=== PATIENT | female | born 1965 | race Caucasian/White ===

== ENCOUNTER 2016-06-22 22:08 | Emergency (ER) | payer MEDICARE, MEDICAID ==
[~2016-06-22] VITALS: Ht 162.6 cm; Wt 85.0 kg
[~2016-06-22 22:08] MED LIST: GABA300 PO; LEVO50TA4 PO; MOTI25CH PO
[2016-06-22 22:28] VITALS: BP 133/84; PULSE 111; RESP 22; TEMP 99.3; O2SAT 98
[2016-06-22] MEDS ORDERED: MECL-62 PO (22:36)
[2016-06-22] MEDS ORDERED: LEVO50TA4 PO (22:36)
[2016-06-22] MEDS ORDERED: AZIT250T3 PO (22:36)
--- NOTE | 2016-06-22 22:52 | PD ---
HPI Chief Complaint: Respiratory Symptoms Time Seen by Provider: 22:48 Travel History International Travel<30 days: No Contact w/Intl Traveler<30days: No Traveled to known affect area: No History of Present Illness HPI 50-year-old female with history of smoking, presents to the ER today with 2 weeks history of coughing, coughing up phlegm, shortness of breath, and had gone to [place] last week and had been seen by a physician there, had been given Zithromax which she states she is completing today but states that her reading has not improved. She has tried to use inhalers from a friend and only received mild improvements in breathing. She states she has been having subjective fevers. She denies any vomiting or any other symptoms. Modifying Factors: None Associated Signs & Symptoms: 2 weeks of coughing and shortness of breath Risk Factors: Smoking, finished Zithromax today PFSH Past Medical History Medical History: Denies Significant Hx ?: Not Past Surgical History Neurologic Surgery: Yes Social History Alcohol Use: No Tobacco Use: Yes (1/2 PPD) Substance Use: No Allergies-Medications (Allergen,Severity, Reaction): Coded Allergies: No Known Allergies (Verified , 06/22/16) Reported Meds & Prescriptions Reported Meds & Active Scripts Active Reported Azithromycin 250 Mg Tab 250 Mg PO DIRECTED Take 2 tabs (500 mg) on day 1 then 1 tab daily x 4 days. Meclizine (Meclizine HCl) 25 Mg Tab 25 Mg PO BID PRN Levothyroxine (Levothyroxine Sodium) 50 Mcg Tab 50 Mcg PO DAILY Review of Systems Except as stated in HPI: all other systems reviewed are Neg Physical Exam Narrative GENERAL: Well-developed middle age white female patient currently not in acute distress at rest. Awake and oriented 3. SKIN: Focused skin assessment warm/dry. HEAD: Atraumatic. Normocephalic. EYES: Pupils equal and round. No scleral icterus. No injection or drainage. ENT: No nasal bleeding or discharge. Mucous membranes pink and moist. NECK: Trachea midline. No JVD. CARDIOVASCULAR: Regular rate and rhythm. No murmur appreciated. RESPIRATORY: No accessory muscle use. Bilateral wheezing throughout. Breath sounds equal bilaterally. GASTROINTESTINAL: Abdomen soft, non-tender, nondistended. Hepatic and splenic margins not palpable. MUSCULOSKELETAL: No obvious deformities. No clubbing. No cyanosis. No edema. NEUROLOGICAL: Awake and alert. No obvious cranial nerve deficits. Motor grossly within normal limits. Normal speech. PSYCHIATRIC: Appropriate mood and affect; insight and judgment normal. Data Data Last Documented VS Vital Signs Date Time Temp Pulse Resp B/P Pulse Ox O2 Delivery O2 Flow Rate FiO2 06/22/16 22:28 99.3 111 22 133/84 98 Orders Complete Blood Count With Diff (06/22/16 22:48) Comprehensive Metabolic Panel (06/22/16 22:48) B-Type Natriuretic Peptide (06/22/16 22:48) Influenzae A/B Antigen (06/22/16 22:48) Iv Access Insert/Monitor (06/22/16 22:48) Ecg Monitoring (06/22/16 22:48) Oximetry (06/22/16 22:48) Oxygen Administration (06/22/16 22:48) Chest, Single Ap (06/22/16 22:48) Sodium Chloride 0.9% Flush (Ns Flush) (06/22/16 23:00) Methylprednisolone So Succ Inj (Solumedr (06/22/16 23:00) Albuterol-Ipratropium Neb (Duoneb Neb) (06/22/16 23:00) Albuterol Neb (Albuterol Neb) (06/22/16 23:45) Labs Laboratory Tests Test 06/22/16 23:00 White Blood Count 12.9 TH/MM3 Red Blood Count 4.37 MIL/MM3 Hemoglobin 12.8 GM/DL Hematocrit 38.0 % Mean Corpuscular Volume 86.9 FL Mean Corpuscular Hemoglobin 29.3 PG Mean Corpuscular Hemoglobin 33.7 % Concent Red Cell Distribution Width 12.5 % Platelet Count 240 TH/MM3 Mean Platelet Volume 7.8 FL Neutrophils (%) (Auto) 61.3 % Lymphocytes (%) (Auto) 27.4 % Monocytes (%) (Auto) 7.4 % Eosinophils (%) (Auto) 3.4 % Basophils (%) (Auto) 0.5 % Neutrophils # (Auto) 7.9 TH/MM3 Lymphocytes # (Auto) 3.5 TH/MM3 Monocytes # (Auto) 1.0 TH/MM3 Eosinophils # (Auto) 0.4 TH/MM3 Basophils # (Auto) 0.1 TH/MM3 CBC Comment DIFF FINAL Differential Comment Sodium Level 140 MEQ/L Potassium Level 3.2 MEQ/L Chloride Level 108 MEQ/L Carbon Dioxide Level 23.7 MEQ/L Anion Gap 8 MEQ/L Blood Urea Nitrogen 11 MG/DL Creatinine 0.56 MG/DL Estimat Glomerular Filtration 115 ML/MIN Rate Random Glucose 123 MG/DL Calcium Level 8.6 MG/DL Total Bilirubin 0.1 MG/DL Aspartate Amino Transf 13 U/L (AST/SGOT) Alanine Aminotransferase 21 U/L (ALT/SGPT) Alkaline Phosphatase 69 U/L B-Type Natriuretic Peptide 9 PG/ML Total Protein 7.1 GM/DL Albumin 3.4 GM/DL MDM Medical Decision Making Medical Screen Exam Complete: Yes Emergency Medical Condition: Yes Medical Record Reviewed: Yes Interpretation(s) Laboratory Tests Test 06/22/16 23:00 White Blood Count 12.9 TH/MM3 (4.0-11.0) Neutrophils # (Auto) 7.9 TH/MM3 (1.8-7.7) Monocytes # (Auto) 1.0 TH/MM3 (0-0.9) Potassium Level 3.2 MEQ/L (3.5-5.1) Chloride Level 108 MEQ/L (98-107) Random Glucose 123 MG/DL (74-106) Total Bilirubin 0.1 MG/DL (0.2-1.0) Aspartate Amino Transf 13 U/L (15-37) (AST/SGOT) Last 24 hours Impressions Chest X-Ray 06/22/16 8882 Signed Impressions: Service Date/Time: Wednesday, June 22, 2016 22:46 - CONCLUSION: 1. No acute cardiopulmonary disease. Daniel Naylor MD Differential Diagnosis Coughing, shortness of breathpneumonia versus bronchitis versus COPD Narrative Course Chest x-ray did not show any signs of acute pneumonia. Patient was given Solu- Medrol and nebulizers in the ER. After 4 nebulizers in the ER, she is feeling improved and my plan would be to release the patient with follow-up to primary care physician. Return for any worsening in symptoms as needed. I have discussed smoking cessation with the patient. She states understanding. Diagnosis Primary Impression: Bronchitis Med/Other Pt SpecificInfo: Prescription(s) given Scripts Albuterol 6.7 GM Inh (Proventil Hfa 6.7 GM Inh)90 Mcg/Act Aer2 Puff INH Q4-6H PRN (SHORTNESS OF BREATH) #1 INHALER Ref 0 Prov:Madelyn Lomeli MD 06/23/16 Prednisone 50 Mg Tab50 Mg PO DAILY #5 TAB Ref 0 Prov:Madelyn Lomeli MD 06/23/16 Disposition: 01 DISCHARGE HOME Condition: Stable Madelyn Lomeli MD Jun 22, 2016 22:52
[2016-06-22] MEDS ORDERED: SODIUM CHLORIDE 0.9% FLUSH 10 ML FLUSH IVF PRN (23:00)
[2016-06-22] MEDS ORDERED: methylPREDNISolone SOD SUCC 125 MG/2 ML VIAL IVP ONE (23:00)
--- NOTE | 2016-06-22 23:04 | RADRPT ---
EXAM DATE/TIME: 06/22/2016 22:46 [facility] COMPARISON: No previous studies available for comparison. INDICATIONS : Cold symptoms. MEDICAL HISTORY : None. SURGICAL HISTORY : None. ENCOUNTER: Initial ACUITY: 1 day PAIN SCORE: 0/10 LOCATION: Bilateral chest FINDINGS: A single view of the chest demonstrates the lungs to be symmetrically aerated without evidence of mas s, infiltrate or effusion. The cardiomediastinal contours are unremarkable. Osseous structures are intact. CONCLUSION: 1. No acute cardiopulmonary disease. Daniel Naylor MD on June 22, 2016 at 23:02 Board Certified Radiologist. This report was verified electronically.
[2016-06-22] MEDS: RESP: ALBUTEROL 2.5 MG/IPRATROPIUM 0.5 MG NEB (SCH) INH ×2 (23:08→23:09)
[2016-06-22 23:16] LABS: AUTOMATED NEUTROPHIL # 7.9 TH/MM3 (1.8-7.7); BASOPHIL # 0.1 TH/MM3 (0-0.2); BASOPHIL % 0.5 % (0.0-2.0); EOSINOPHIL # 0.4 TH/MM3 (0-0.4); EOSINOPHIL % 3.4 % (0.0-4.0); HEMO FLAGS DIFF FINAL; LYMPH % 27.4 % (9.0-44.0); LYMPHOCYTE # 3.5 TH/MM3 (1.0-4.8); MEAN CELL VOLUME 86.9 FL (80.0-100.0); MEAN CORPUSCULAR HEMOGLOBIN 29.3 PG (27.0-34.0); MEAN CORPUSCULAR HGB CONC 33.7 % (32.0-36.0); MONO % 7.4 % (0.0-8.0); NEUT % 61.3 % (16.0-70.0); PLATELET COUNT 240 TH/MM3 (150-450); RED BLOOD COUNT 4.37 MIL/MM3 (4.00-5.30); RED CELL DISTRIBUTION WIDTH 12.5 % (11.6-17.2); WHITE BLOOD COUNT 12.9 TH/MM3 (4.0-11.0)
[2016-06-22 23:27] LABS: ALT (GPT) 21 U/L (10-53); ANION GAP 8 MEQ/L (5-15); AST (GOT) 13 U/L (15-37); BICARBONATE 23.7 MEQ/L (21.0-32.0); BLOOD UREA NITROGEN 11 MG/DL (7-18); CHLORIDE 108 MEQ/L (98-107); GLOMERULAR FILTRATION RATE 115 ML/MIN (>89); POTASSIUM 3.2 MEQ/L (3.5-5.1); SODIUM (NA) 140 MEQ/L (136-145)
[2016-06-22 23:29] LABS: ALKALINE PHOSPHATASE 69 U/L (45-117); TOTAL BILIRUBIN ADULT 0.1 MG/DL (0.2-1.0)
[2016-06-22] MEDS: RESP: ALBUTEROL 2.5 MG/3 ML NEB (SCH) INH (23:59)
[2016-06-23] MEDS ORDERED: ALBU6.7H INH (00:34)
[2016-06-23] MEDS ORDERED: PRED50 PO (00:34)
--- NOTE | 2016-06-23 22:50 | EKG ---
Date Performed: 06/22/2016 Time Performed: 22:32:24 PTAGE: 50 years EKG: Sinus rhythm POSSIBLE LEFT ATRIAL ENLARGEMENT BORDERLINE ECG NO PREVIOUS TRACING DOCTOR: Kp Henry Interpretating Date/Time 06/23/2016 22:48:41
== END 2016-06-23 01:18 | disposition home or self-care (01) ==
LOC: NEPC 22:08
DX: J40 Bronchitis, not specified as acute or chronic (principal); F17.200 Nicotine dependence, unspecified, uncomplicated
CPT/HCPCS: 71010; 80053; 83880; 85025; 87804; 93005; 94640; 94664; 96374; 99284; J2930; J7613

== ENCOUNTER 2016-06-28 18:39 | Emergency (ER) | payer MEDICARE, OTHER ==
[~2016-06-28] VITALS: Ht 162.6 cm; Wt 86.0 kg
[~2016-06-28 18:39] MED LIST changes: +ALBU6.7H INH; +AZIT250T3 PO; -GABA300 PO; +MECL-62 PO; -MOTI25CH PO; +PRED50 PO
[2016-06-28 18:40] VITALS: BP 167/80; PULSE 84; RESP 20; TEMP 98.6; O2SAT 97
[2016-06-28] MEDS ORDERED: methylPREDNISolone SOD SUCC 125 MG/2 ML VIAL IVP ONE (19:15)
[2016-06-28] MEDS: RESP: ALBUTEROL 2.5 MG/IPRATROPIUM 0.5 MG NEB (SCH) INH (19:24)
--- NOTE | 2016-06-28 19:44 | PD ---
HPI Chief Complaint: Respiratory Distress Time Seen by Provider: 19:41 Travel History International Travel<30 days: No Contact w/Intl Traveler<30days: No Traveled to known affect area: No History of Present Illness HPI 50-year-old female that presents to the ED for evaluation of cough, runny nose and shortness of breath with chest pressure. Per patient she's had this for the past 2 weeks. Per patient she has a history of bronchitis. Patient was seen here about a week ago and was given steroids as well as inhaler with good relief. Per patient the symptoms worsened today when she finished her steroids yesterday. Per patient most of her symptoms or the cough which is constant. She feels short of breath even with laying and sitting. She is concerned that she was not given antibiotics the last time. Per patient she should takes azithromycin and usually gets rid of her symptoms. She states that she started having the symptoms before coming from [place] and she was given azithromycin at the time with no improvement of her symptoms. She denies any chest pain but states that she has some chest pressure. Per patient her symptoms seem to be worsening. No other medical problems. She does have a chronic history of smoking. No history of asthma or COPD. PFSH Past Medical History Thyroid Disease: Yes ?: Not Past Surgical History Surgical History: No Previous Surgery Neurologic Surgery: Yes Social History Alcohol Use: No Tobacco Use: Yes (1/2 PPD) Substance Use: No Allergies-Medications (Allergen,Severity, Reaction): Coded Allergies: No Known Allergies (Verified , 06/28/16) Reported Meds & Prescriptions Reported Meds & Active Scripts Active Tessalon Perles (Benzonatate) 100 Mg Cap 100 Mg PO TID PRN Prednisone 20 Mg Tab 20 Mg PO BID Cipro (Ciprofloxacin HCl) 500 Mg Tab 500 Mg PO BID 10 Days Proventil Hfa 6.7 GM Inh (Albuterol Sulfate) 90 Mcg/Act Aer 2 Puff INH Q4-6H PRN Prednisone 50 Mg Tab 50 Mg PO DAILY Reported Azithromycin 250 Mg Tab 250 Mg PO DIRECTED Take 2 tabs (500 mg) on day 1 then 1 tab daily x 4 days. Meclizine (Meclizine HCl) 25 Mg Tab 25 Mg PO BID PRN Levothyroxine (Levothyroxine Sodium) 50 Mcg Tab 50 Mcg PO DAILY Review of Systems Except as stated in HPI: all other systems reviewed are Neg Physical Exam Narrative GENERAL: Well-nourished, well-developed patient in no apparent distress. SKIN: Warm and dry. HEAD: Atraumatic. Normocephalic. EYES: Pupils equal and round reactive to light and accommodation. No scleral icterus. No injection or drainage. ENT: No nasal bleeding or discharge. Mucous membranes pink and moist. TMs are clear with no sign of infection or perforation. No mastoid tenderness. Ear canals are intact bilaterally. No lymphadenopathy. Nostril mucosa is red and moist with clear mucus noted. No sinus tenderness to palpation noted. Tonsils are not enlarged or swollen. No ulvua Deviation. Tongue is midline. NECK: Trachea midline. No JVD. No meningeal signs noted CARDIOVASCULAR: Regular rate and rhythm. RESPIRATORY: No accessory muscle use. Clear to auscultation. Breath sounds equal bilaterally. GASTROINTESTINAL: Abdomen soft, non-tender, nondistended. Hepatic and splenic margins not palpable. MUSCULOSKELETAL: Extremities without clubbing, cyanosis, or edema. No obvious deformities. NEUROLOGICAL: Awake and alert. No obvious cranial nerve deficits. Motor grossly within normal limits. Five out of 5 muscle strength in the arms and legs. Normal speech. PSYCHIATRIC: Appropriate mood and affect; insight and judgment normal. Data Data Last Documented VS Vital Signs Date Time Temp Pulse Resp B/P Pulse Ox O2 Delivery O2 Flow Rate FiO2 06/28/16 18:40 98.6 84 20 167/80 97 Room Air Orders Electrocardiogram (06/28/16 19:07) Complete Blood Count With Diff (06/28/16 19:07) Basic Metabolic Panel (Bmp) (06/28/16 19:07) Troponin I (06/28/16 19:07) Chest, Single Ap (06/28/16 19:07) Methylprednisolone So Succ Inj (Solumedr (06/28/16 19:15) Albuterol-Ipratropium Neb (Duoneb Neb) (06/28/16 19:15) Labs Laboratory Tests Test 06/28/16 19:13 White Blood Count 13.5 TH/MM3 Red Blood Count 4.11 MIL/MM3 Hemoglobin 12.0 GM/DL Hematocrit 36.3 % Mean Corpuscular Volume 88.4 FL Mean Corpuscular Hemoglobin 29.3 PG Mean Corpuscular Hemoglobin 33.1 % Concent Red Cell Distribution Width 12.9 % Platelet Count 248 TH/MM3 Mean Platelet Volume 7.5 FL Neutrophils (%) (Auto) 60.2 % Lymphocytes (%) (Auto) 30.6 % Monocytes (%) (Auto) 6.4 % Eosinophils (%) (Auto) 2.5 % Basophils (%) (Auto) 0.3 % Neutrophils # (Auto) 8.2 TH/MM3 Lymphocytes # (Auto) 4.1 TH/MM3 Monocytes # (Auto) 0.9 TH/MM3 Eosinophils # (Auto) 0.3 TH/MM3 Basophils # (Auto) 0.0 TH/MM3 CBC Comment DIFF FINAL Differential Comment Sodium Level 142 MEQ/L Potassium Level 3.8 MEQ/L Chloride Level 106 MEQ/L Carbon Dioxide Level 28.7 MEQ/L Anion Gap 7 MEQ/L Blood Urea Nitrogen 12 MG/DL Creatinine 0.71 MG/DL Estimat Glomerular Filtration 87 ML/MIN Rate Random Glucose 98 MG/DL Calcium Level 8.9 MG/DL Troponin I LESS THAN 0.02 NG/ML MDM Medical Decision Making Medical Screen Exam Complete: Yes Emergency Medical Condition: Yes Medical Record Reviewed: Yes Interpretation(s) BMP Diagram 06/28/16 19:13 CBC Diagram 06/28/16 19:13 Last Impressions Chest X-Ray 06/28/161906 Signed Impressions: Service Date/Time: Tuesday, June 28, 2016 19:18 - CONCLUSION: No acute disease. Sinan Garcia MD troponin negative EKG shows sinus rhythm with no sign of acute disease. Read by me and attending. Differential Diagnosis Bronchitis versus pneumonia versus sinusitis versus COPD Narrative Course 50-year-old female that presents to the ED for evaluation of worsening cough and shortness of breath. Patient was properly examined and was found to have signs and symptoms which appear to be consistent with acute on chronic bronchitis. Patient's physical exam and vitals are reassuring at this time. She does not appear to be in acute distress. At this time and do recommend redo of labs and imaging. Patient is in agreement with this plan. Patient was given 2 breathing treatments here with some relief. Labs and imaging showed no sign of acute disease. From history and physical this appears to be bronchitis. Patient at this time will be given a prescription for phenergan w/ codeine, prednisone, z-pack to cover for bacterial infection although this appears to be less likely.My attending evaluated the patient and agrees with this plan. Patient was counseled that she stop smoking. I suspect that that might be early COPD secondary to improvement of her symptoms with the prednisone. Patient was told to continue taking the albuterol inhaler given to her. Patient was told that she needs to follow up with PCP. See ED for worsening symptoms. Diagnosis Primary Impression: Bronchitis Patient Instructions: General Instructions Additional Instructions: Motrin and Tylenol for pain and fever. You can use [id number] antihistamine as well as well as Mucinex as needed for runny nose and congestion. Cough drops for cough as needed. Drink plenty of fluids. Follow-up with PCP. See ED for worsening symptoms. STOP SMOKING, this will greatly improve your symptoms over time. Med/Other Pt SpecificInfo: Prescription(s) given Scripts Promethazine-Codeine Liq 6.25-10 Mg/5 Ml Syrp5 Ml PO Q6H PRN (COUGH AND/OR COLD SYMPTOMS) 7 Days Ref 0 Prov:Shannen Barclay MD 06/28/16 Azithromycin 250 Mg Lns562 Mg PO DIRECTED #6 TAB Take 2 tabs (500 mg) on day 1 then 1 tab daily x 4 days. Prov:Shannen Barclay MD 06/28/16 Benzonatate (Tessalon Perles)100 Mg Dou517 Mg PO TID PRN (COUGH) #20 CAP Prov:Shannen Barclay MD 06/28/16 Prednisone 20 Mg Tab20 Mg PO BID #10 TAB Prov:Shannen Barclay MD 06/28/16 Disposition: 01 DISCHARGE HOME Condition: Stable Tera Joseph June 28, 2016 19:44
[2016-06-28 19:45] LABS: AUTOMATED NEUTROPHIL # 8.2 TH/MM3 (1.8-7.7); BASOPHIL % 0.3 % (0.0-2.0); EOSINOPHIL # 0.3 TH/MM3 (0-0.4); EOSINOPHIL % 2.5 % (0.0-4.0); HEMATOCRIT 36.3 % (35.0-46.0); HEMO FLAGS DIFF FINAL; LYMPH % 30.6 % (9.0-44.0); LYMPHOCYTE # 4.1 TH/MM3 (1.0-4.8); MEAN CELL VOLUME 88.4 FL (80.0-100.0); MEAN CORPUSCULAR HEMOGLOBIN 29.3 PG (27.0-34.0); MEAN CORPUSCULAR HGB CONC 33.1 % (32.0-36.0); MONO % 6.4 % (0.0-8.0); NEUT % 60.2 % (16.0-70.0); PLATELET COUNT 248 TH/MM3 (150-450); RED BLOOD COUNT 4.11 MIL/MM3 (4.00-5.30); RED CELL DISTRIBUTION WIDTH 12.9 % (11.6-17.2); WHITE BLOOD COUNT 13.5 TH/MM3 (4.0-11.0)
--- NOTE | 2016-06-28 19:57 | RADRPT ---
EXAM DATE/TIME: 06/28/2016 19:18 [facility] COMPARISON: CHEST SINGLE AP, June 22, 2016, 22:46. INDICATIONS : Chest pain, shortness of breath, congestion, and cough. MEDICAL HISTORY : None. SURGICAL HISTORY : None. ENCOUNTER: Initial ACUITY: 1 week PAIN SCORE: 5/10 LOCATION: Bilateral chest FINDINGS: A single view of the chest demonstrates the lungs to be symmetrically aerated without evidence of mas s, infiltrate or effusion. The cardiomediastinal contours are unremarkable. Osseous structures are intact. CONCLUSION: No acute disease. Sinan Garcia MD on June 28, 2016 at 19:54 Board Certified Radiologist. This report was verified electronically.
[2016-06-28 20:03] LABS: ANION GAP 7 MEQ/L (5-15); BICARBONATE 28.7 MEQ/L (21.0-32.0); BLOOD UREA NITROGEN 12 MG/DL (7-18); CHLORIDE 106 MEQ/L (98-107); GLOMERULAR FILTRATION RATE 87 ML/MIN (>89); POTASSIUM 3.8 MEQ/L (3.5-5.1); SODIUM (NA) 142 MEQ/L (136-145)
[2016-06-28] MEDS ORDERED: BENZ100 PO (20:16)
[2016-06-28] MEDS ORDERED: PRED20 PO (20:16)
[2016-06-28] MEDS ORDERED: CIPR-9 PO (20:16)
[2016-06-28] MEDS ORDERED: AZIT250T3 PO (20:28)
[2016-06-28] MEDS ORDERED: PROM6.256 PO (20:28)
[2016-06-28 20:52] VITALS: BP 144/75
--- NOTE | 2016-06-28 21:14 | PD ---
Data Data Last Documented VS Vital Signs Date Time Temp Pulse Resp B/P Pulse Ox O2 Delivery O2 Flow Rate FiO2 06/28/16 20:52 73 16 144/75 96 06/28/16 18:40 98.6 Room Air Orders Electrocardiogram (06/28/16 19:07) Complete Blood Count With Diff (06/28/16 19:07) Basic Metabolic Panel (Bmp) (06/28/16 19:07) Troponin I (06/28/16 19:07) Chest, Single Ap (06/28/16 19:07) Methylprednisolone So Succ Inj (Solumedr (06/28/16 19:15) Albuterol-Ipratropium Neb (Duoneb Neb) (06/28/16 19:15) Labs Laboratory Tests Test 06/28/16 19:13 White Blood Count 13.5 TH/MM3 Red Blood Count 4.11 MIL/MM3 Hemoglobin 12.0 GM/DL Hematocrit 36.3 % Mean Corpuscular Volume 88.4 FL Mean Corpuscular Hemoglobin 29.3 PG Mean Corpuscular Hemoglobin 33.1 % Concent Red Cell Distribution Width 12.9 % Platelet Count 248 TH/MM3 Mean Platelet Volume 7.5 FL Neutrophils (%) (Auto) 60.2 % Lymphocytes (%) (Auto) 30.6 % Monocytes (%) (Auto) 6.4 % Eosinophils (%) (Auto) 2.5 % Basophils (%) (Auto) 0.3 % Neutrophils # (Auto) 8.2 TH/MM3 Lymphocytes # (Auto) 4.1 TH/MM3 Monocytes # (Auto) 0.9 TH/MM3 Eosinophils # (Auto) 0.3 TH/MM3 Basophils # (Auto) 0.0 TH/MM3 CBC Comment DIFF FINAL Differential Comment Sodium Level 142 MEQ/L Potassium Level 3.8 MEQ/L Chloride Level 106 MEQ/L Carbon Dioxide Level 28.7 MEQ/L Anion Gap 7 MEQ/L Blood Urea Nitrogen 12 MG/DL Creatinine 0.71 MG/DL Estimat Glomerular Filtration 87 ML/MIN Rate Random Glucose 98 MG/DL Calcium Level 8.9 MG/DL Troponin I LESS THAN 0.02 NG/ML MDM Supervised Visit with АЛЕКСАНДР: Yes Narrative Course The history, exam, and medical decision-making in the associated midlevel provider note were completed with my assistance. I reviewed and agree with the findings presented. I attest that I had a [id number] encounter with the patient on the same day, and personally performed and documented my assessment and findings in the medical record. *My assessment and Findings: This is a 50-year-old female who presents to the emergency department with recurrent productive cough with yellow sputum, worse in the evenings, improved during the day associated with some wheezing. She has a history of recurrent bronchitis in the past. She just completed prednisone and says she felt much better on the prednisone but when she ran out she started to having creasing symptoms. Patient is in no respiratory distress and has reassuring vital signs. Chest x-ray was unremarkable. She'll be discharged on prednisone, azithromycin and promethazine with codeine for symptomatic control. Diagnosis Primary Impression: Bronchitis Patient Instructions: General Instructions, Acute Bronchitis (ED) Departure Forms: Tests/Procedures Additional Instruction: Motrin and Tylenol for pain and fever. You can use [id number] antihistamine as well as well as Mucinex as needed for runny nose and congestion. Cough drops for cough as needed. Drink plenty of fluids. Follow-up with PCP. See ED for worsening symptoms. STOP SMOKING, this will greatly improve your symptoms over time. Scripts Promethazine-Codeine Liq 6.25-10 Mg/5 Ml Syrp5 Ml PO Q6H PRN (COUGH AND/OR COLD SYMPTOMS) 7 Days Ref 0 Prov:Shannen Barclay MD 06/28/16 Azithromycin 250 Mg Mqs813 Mg PO DIRECTED #6 TAB Take 2 tabs (500 mg) on day 1 then 1 tab daily x 4 days. Prov:Shannen Barclay MD 06/28/16 Benzonatate (Tessalon Perles)100 Mg Pad885 Mg PO TID PRN (COUGH) #20 CAP Prov:Shannen Barclay MD 06/28/16 Prednisone 20 Mg Tab20 Mg PO BID #10 TAB Prov:Shannen Barclay MD 06/28/16 Disposition: 01 DISCHARGE HOME Condition: Stable Shannen Barclay MD June 28, 2016 21:14
--- NOTE | 2016-06-28 21:35 | EKG ---
Date Performed: 06/28/2016 Time Performed: 19:18:45 PTAGE: 50 years EKG: Sinus rhythm NORMAL ECG PREVIOUS TRACING : 06/22/2016 22.32 DOCTOR: Giovanni Hodgson Interpretating Date/Time 06/28/2016 21:33:01
== END 2016-06-28 20:54 | disposition home or self-care (01) ==
LOC: NEPE 18:39
DX: J40 Bronchitis, not specified as acute or chronic (principal); R05 Cough; F17.210 Nicotine dependence, cigarettes, uncomplicated; R09.89 Other specified symptoms and signs involving the circulatory and respiratory systems
CPT/HCPCS: 71010; 80048; 84484; 85025; 93005; 94640; 94664; 96374; 99284; J2930

== ENCOUNTER 2016-07-07 12:58 | Emergency (ER) | payer MEDICARE, OTHER ==
[~2016-07-07 12:58] MED LIST changes: +BENZ100 PO; +PRED20 PO; -PRED50 PO; +PROM6.256 PO
[2016-07-07 13:00] VITALS: BP 140/86; PULSE 98; RESP 20; TEMP 98.8; O2SAT 98
--- NOTE | 2016-07-07 13:37 | PD ---
Physical Exam Date Seen by Provider: July 07, 2016 Time Seen by Provider: 13:34 Narrative 50 y/o female with Hx. Bronchitis treated in the last week. Now here with worsening weakness. Cough is improved. Symptoms has been sick for 21 days. No Pain. No Chest tightness. Data Data Last Documented VS Vital Signs Date Time Temp Pulse Resp B/P Pulse Ox O2 Delivery O2 Flow Rate FiO2 07/07/16 13:00 98.8 98 20 140/86 98 Room Air [facility] Medical Record Reviewed: Yes Supervised Visit with АЛЕКСАНДР: Yes Condition: Stable Tyler Guevara July 07, 2016 13:37
--- NOTE | 2016-07-07 16:23 | PD ---
HPI Chief Complaint: General Weakness Time Seen by Provider: 16:23 Travel History International Travel<30 days: No Contact w/Intl Traveler<30days: No Traveled to known affect area: No History of Present Illness HPI 50 year old female with recent diagnosis of bronchitis presents to the ED for evaluation of sore throat and general weakness. Patient states that her cough has improved.Endorses diminished appetite. Denies fevers, chills, N/V, changes in bowel habits, dysuria, back pain. She is a current smoker. She was treated with azithromycin and prednisone by a provider in [place] as well as an ED provider. She endorses compliance with those medications. PFSH Past Medical History Thyroid Disease: Yes ?: Not Past Surgical History Hysterectomy: Yes Neurologic Surgery: Yes Social History Alcohol Use: No Tobacco Use: Yes Substance Use: No Allergies-Medications (Allergen,Severity, Reaction): Coded Allergies: No Known Allergies (Verified , 07/07/16) Reported Meds & Prescriptions Reported Meds & Active Scripts Active Promethazine-Codeine Liq 6.25-10 Mg/5 Ml Syrp 10 Ml PO Q6H PRN 7 Days Tessalon Perles (Benzonatate) 100 Mg Cap 100 Mg PO TID PRN Levaquin (Levofloxacin) 500 Mg Tab 500 Mg PO DAILY 14 Days Proventil Hfa 6.7 GM Inh (Albuterol Sulfate) 90 Mcg/Act Aer 2 Puff INH Q4-6H PRN Reported Levothyroxine (Levothyroxine Sodium) 50 Mcg Tab 50 Mcg PO DAILY Review of Systems Except as stated in HPI: all other systems reviewed are Neg Physical Exam Narrative GENERAL: Well-nourished, well-developed white female in no acute distress. SKIN: Focused skin assessment warm/dry. HEAD: Normocephalic. EYES: No scleral icterus. No injection or drainage. NECK: Supple, trachea midline. No JVD or lymphadenopathy. CARDIOVASCULAR: Regular rate and rhythm without murmurs, gallops, or rubs. 2+ DP and radial pulses bilaterally. RESPIRATORY: Breath sounds clear and equal bilaterally. No accessory muscle use. GASTROINTESTINAL: Abdomen soft, non-tender, nondistended. Active bowel sounds. MUSCULOSKELETAL: No cyanosis, or edema. The patient is ambulatory moves extremities spontaneously. BACK: Nontender without obvious deformity. No CVA tenderness. Data Data Last Documented VS Vital Signs Date Time Temp Pulse Resp B/P Pulse Ox O2 Delivery O2 Flow Rate FiO2 07/07/16 17:08 98 Room Air 07/07/16 16:26 92 18 133/76 07/07/16 13:00 98.8 Orders Complete Blood Count With Diff (07/07/16 16:51) Comprehensive Metabolic Panel (07/07/16 16:51) Urinalysis - C+S If Indicated (07/07/16 16:51) Iv Access Insert/Monitor (07/07/16 16:51) Ecg Monitoring (07/07/16 16:51) Oximetry (07/07/16 16:51) Oxygen Administration (07/07/16 16:51) Chest, Single Ap (07/07/16 16:51) Sodium Chloride 0.9% Flush (Ns Flush) (07/07/16 17:00) Group A Rapid Strep Screen (07/07/16 16:51) Electrocardiogram (07/07/16 16:51) Sodium Chlor 0.9% 1000 Ml Inj (Ns 1000 M (07/07/16 17:00) Strep Culture (Group A) (07/07/16 17:13) Levofloxacin (Levaquin) (07/07/16 18:30) Labs Laboratory Tests Test 07/07/16 17:13 White Blood Count 14.1 TH/MM3 Red Blood Count 4.82 MIL/MM3 Hemoglobin 13.9 GM/DL Hematocrit 42.8 % Mean Corpuscular Volume 88.7 FL Mean Corpuscular Hemoglobin 28.9 PG Mean Corpuscular Hemoglobin 32.6 % Concent Red Cell Distribution Width 13.0 % Platelet Count 254 TH/MM3 Mean Platelet Volume 7.3 FL Neutrophils (%) (Auto) 55.5 % Lymphocytes (%) (Auto) 32.9 % Monocytes (%) (Auto) 8.4 % Eosinophils (%) (Auto) 2.5 % Basophils (%) (Auto) 0.7 % Neutrophils # (Auto) 7.8 TH/MM3 Lymphocytes # (Auto) 4.6 TH/MM3 Monocytes # (Auto) 1.2 TH/MM3 Eosinophils # (Auto) 0.4 TH/MM3 Basophils # (Auto) 0.1 TH/MM3 CBC Comment DIFF FINAL Differential Comment Urine Color YELLOW Urine Turbidity HAZY Urine pH 5.0 Urine Specific [place] 1.026 Urine Protein TRACE mg/dL Urine Glucose (UA) NEG mg/dL Urine Ketones NEG mg/dL Urine Occult Blood NEG Urine Nitrite NEG Urine Bilirubin NEG Urine Urobilinogen 2.0 MG/DL Urine Leukocyte Esterase NEG Urine RBC 1 /hpf Urine WBC 1 /hpf Urine Squamous Epithelial <1 /hpf Cells Urine Bacteria RARE /hpf Urine Mucus MANY /lpf Microscopic Urinalysis Comment CULT NOT INDICATED Sodium Level 137 MEQ/L Potassium Level 3.8 MEQ/L Chloride Level 103 MEQ/L Carbon Dioxide Level 28.2 MEQ/L Anion Gap 6 MEQ/L Blood Urea Nitrogen 9 MG/DL Creatinine 0.58 MG/DL Estimat Glomerular Filtration 110 ML/MIN Rate Random Glucose 102 MG/DL Calcium Level 9.3 MG/DL Total Bilirubin 0.3 MG/DL Aspartate Amino Transf 16 U/L (AST/SGOT) Alanine Aminotransferase 27 U/L (ALT/SGPT) Alkaline Phosphatase 71 U/L Total Protein 7.5 GM/DL Albumin 3.5 GM/DL MDM Medical Decision Making Medical Screen Exam Complete: Yes Emergency Medical Condition: Yes Interpretation(s) EKG rate 89, sinus rhythm. Normal intervals. Normal axis. No ST elevations or depressions. Reviewed by Dr. Cisse. Differential Diagnosis chronic bronchitis versus pneumonia versus pharyngitis versus strep pharyngitis versus other Narrative Course 50 year old female with recent diagnosis of bronchitis presents to the ED for evaluation of sore throat and general weakness. Patient states that her cough has improved.Endorses diminished appetite. Denies fevers, chills, N/V, changes in bowel habits, dysuria, back pain. She is a current smoker. She was treated with azithromycin and prednisone by a provider in [place] as well as an ED provider. She endorses compliance with those medications. Patient afebrile, pulse 98, respiratory rate 20, 98% ORA on presentation. Chest is clear to auscultation bilaterally, abdomen soft, nontender, no CVA tenderness, no lower extremity edema. IV was established. Patient was administered 1 L normal saline. CBC: WBC 14.1 CMP: Unremarkable. UA: No culture indicated. CXR: Small mild left lung base infiltrate. This is community-acquired pneumonia. Patient was prescribed 500 mg Levaquin 14 days, first dose administered in the ED. She was also prescribed a short course of promethazine cough syrup and Tessalon Perles. She is instructed to take all medication as prescribed, follow up with her primary care provider, return for worsening of symptoms. She indicated understanding of the instructions and is agreeable to the care plan. The patient is stable and discharged home. Diagnosis Primary Impression: Community acquired pneumonia Referrals: Primary Care Physician Patient Instructions: Community Acquired Pneumonia (ED), General Instructions Additional Instructions: Rest, hydrate. Take all antibiotics as prescribed, even if your symptoms resolve. Follow-up with your primary care provider. Return to the ED for worsening of symptoms or any urgent or emergent medical condition. Med/Other Pt SpecificInfo: Prescription(s) given Scripts Promethazine-Codeine Liq 6.25-10 Mg/5 Ml Syrp10 Ml PO Q6H PRN (COUGH AND/OR COLD SYMPTOMS) 7 Days Ref 0 Prov:Nakita Adame MD 07/07/16 Benzonatate (Tessalon Perles)100 Mg [id number] Mg PO TID PRN (COUGH) #20 CAP Ref 0 Prov:Dusty Cisse MD 07/07/16 Levofloxacin (Levaquin)500 Mg [id number] Mg PO DAILY 14 Days Ref 0 Prov:Dusty Cisse MD 07/07/16 Disposition: 01 DISCHARGE HOME Condition: Stable Jazz Barney July 07, 2016 16:23
[2016-07-07 16:26] VITALS: BP 133/76; PULSE 92; RESP 18; O2SAT 97
[2016-07-07] MEDS ORDERED: SODIUM CHLOR 0.9% 1000 ML INJ 1,000 ML IV ONE (17:00)
[2016-07-07] MEDS ORDERED: SODIUM CHLORIDE 0.9% FLUSH 10 ML FLUSH IVF PRN (17:00)
[2016-07-07 17:08] VITALS: O2SAT 98
--- NOTE | 2016-07-07 17:25 | RADRPT ---
EXAM DATE/TIME: 07/07/2016 17:13 [facility] COMPARISON: CHEST SINGLE AP, June 28, 2016, 19:18. INDICATIONS : Cough. MEDICAL HISTORY : None. SURGICAL HISTORY : None. ENCOUNTER: [facility] ACUITY: 3 weeks PAIN SCORE: 0/10 LOCATION: Bilateral chest FINDINGS: A single view of the chest demonstrates small mild infiltrate in the left lung base. Otherwise, the l ungs are clear. There are no pleural effusions or pulmonary edema. Heart size is within normal limits . Bony structures are grossly intact. No other new or significant changes compared to the prior study .. CONCLUSION: Small mild infiltrate left lung base. Scott Ac MD on July 07, 2016 at 17:21 Board Certified Radiologist. This report was verified electronically.
[2016-07-07 17:39] LABS: AUTOMATED NEUTROPHIL # 7.8 TH/MM3 (1.8-7.7); BASOPHIL # 0.1 TH/MM3 (0-0.2); BASOPHIL % 0.7 % (0.0-2.0); EOSINOPHIL # 0.4 TH/MM3 (0-0.4); EOSINOPHIL % 2.5 % (0.0-4.0); HEMATOCRIT 42.8 % (35.0-46.0); HEMO FLAGS DIFF FINAL; LYMPH % 32.9 % (9.0-44.0); LYMPHOCYTE # 4.6 TH/MM3 (1.0-4.8); MEAN CELL VOLUME 88.7 FL (80.0-100.0); MEAN CORPUSCULAR HEMOGLOBIN 28.9 PG (27.0-34.0); MEAN CORPUSCULAR HGB CONC 32.6 % (32.0-36.0); MONO % 8.4 % (0.0-8.0); NEUT % 55.5 % (16.0-70.0); PLATELET COUNT 254 TH/MM3 (150-450); RED BLOOD COUNT 4.82 MIL/MM3 (4.00-5.30); WHITE BLOOD COUNT 14.1 TH/MM3 (4.0-11.0)
[2016-07-07 17:42] LABS: BACTERIA, URINE RARE /hpf; BLOOD, URINE NEG (NEG); COMMENT (UR) CULT NOT INDICATED; CULTURE IF INDICATED CULT NOT INDICATED; GLUCOSE,URINE NEG (NEG); KETONE, URINE NEG (NEG); MUCUS URINE MANY /lpf (OCC); NITRITE,URINE NEG (NEG); SQUAMOUS EPITHELIAL CELL URINE <1 /hpf (0-5); URINE COLOR YELLOW (YELLW/STRAW)
[2016-07-07 18:00] LABS: ANION GAP 6 MEQ/L (5-15); AST (GOT) 16 U/L (15-37); BICARBONATE 28.2 MEQ/L (21.0-32.0); BLOOD UREA NITROGEN 9 MG/DL (7-18); CHLORIDE 103 MEQ/L (98-107); GLOMERULAR FILTRATION RATE 110 ML/MIN (>89); POTASSIUM 3.8 MEQ/L (3.5-5.1); SODIUM (NA) 137 MEQ/L (136-145)
[2016-07-07 18:03] LABS: ALKALINE PHOSPHATASE 71 U/L (45-117); ALT (GPT) 27 U/L (10-53); TOTAL BILIRUBIN ADULT 0.3 MG/DL (0.2-1.0)
[2016-07-07] MEDS ORDERED: LEVA500T PO (18:22)
[2016-07-07] MEDS ORDERED: LEVOFLOXACIN 500 MG TAB PO ONE (18:30)
[2016-07-07] MEDS ORDERED: PROM6.256 PO ×2 (18:31→18:32)
[2016-07-07] MEDS ORDERED: BENZ100 PO (18:31)
--- NOTE | 2016-07-08 14:35 | EKG ---
Date Performed: 07/07/2016 Time Performed: 17:03:53 PTAGE: 50 years EKG: Sinus rhythm NORMAL ECG PREVIOUS TRACING : 06/28/2016 19.18 Compared to prior tracing no significant change DOCTOR: Ismael Britton Interpretating Date/Time 07/08/2016 14:34:05
== END 2016-07-07 18:41 | disposition home or self-care (01) ==
LOC: NEPD 12:58
DX: J18.9 Pneumonia, unspecified organism (principal)
CPT/HCPCS: 71010; 80053; 81001; 85025; 87081; 87880; 93005; 96360; 99285; J7030

== ENCOUNTER 2017-03-14 12:13 | Emergency (ER) | payer OTHER ==
[~2017-03-14] VITALS: Ht 162.6 cm; Wt 86.0 kg
[~2017-03-14 12:13] MED LIST changes: -AZIT250T3 PO; +LEVA500T PO; -MECL-62 PO; -PRED20 PO
[2017-03-14 12:15] VITALS: BP 152/89; PULSE 105; RESP 14; TEMP 98.3; O2SAT 97
[2017-03-14] MEDS ORDERED: IBUP-1129 PO (12:36)
[2017-03-14] MEDS ORDERED: MECL-62 PO (12:36)
[2017-03-14] MEDS ORDERED: ALPR.5 PO (12:36)
[2017-03-14] MEDS ORDERED: GINK60TA10 (12:38)
[2017-03-14] MEDS ORDERED: MULTTAB67 PO (12:38)
--- NOTE | 2017-03-14 13:16 | RADRPT ---
EXAM DATE/TIME: 03/14/2017 13:06 [facility] COMPARISON: No previous studies available for comparison. INDICATIONS : Pain in foot with no known injury. MEDICAL HISTORY : None. SURGICAL HISTORY : None. ENCOUNTER: Initial ACUITY: 3 days PAIN SCORE: 10/10 LOCATION: Left Medial foot. FINDINGS: No definite fractures, or dislocations are identified. No definite lytic or sclerotic lesion is seen . Calcaneal spur is present at the attachment site of the plantar aponeurosis and Achilles tendon. S light hypertrophic change is seen involving the tibiotalar joint. CONCLUSION: Chronic changes and no evidence for acute fracture. Ashly Allison MD on March 14, 2017 at 13:13 Board Certified Radiologist. This report was verified electronically.
--- NOTE | 2017-03-14 13:29 | PD ---
HPI Chief Complaint: Pain: Acute or Chronic Time Seen by Provider: 12:34 Travel History International Travel<30 days: No Contact w/Intl Traveler<30days: No Traveled to known affect area: No History of Present Illness HPI 51-year-old female presents the emergency department with progressively worsening left foot pain. The injury. Patient states it started yesterday with pain along the sole of the foot along the base of the toes laterally. This progressed and feels swollen and tender along the dorsal lateral foot as well. Patient denies ankle pain or calf pain. Patient states she's been "walking funny" due to the pain. Patient's tried ibuprofen without improvement. History of arthritis or gout. Patient is not diabetic. He denies fever or chills. Pain is about an 8 out of 10. She states it is achy but sharp when trying to ambulate. She has no known drug allergies. PFSH Past Medical History Diminished Hearing: No Thyroid Disease: Yes Tetanus Vaccination: Unknown Influenza Vaccination: No ?: Not Menopausal: Yes Past Surgical History Hysterectomy: Yes Neurologic Surgery: Yes (back sx x3, brain sx) Other Surgery: Yes (hemorrhoid removal) Social History Alcohol Use: No Tobacco Use: Yes Substance Use: No Allergies-Medications (Allergen,Severity, Reaction): Coded Allergies: No Known Allergies (Verified Adverse Reaction, Unknown, 03/14/17) Reported Meds & Prescriptions Reported Meds & Active Scripts Active Promethazine-Codeine Liq 6.25-10 Mg/5 Ml Syrp 10 Ml PO Q6H PRN 7 Days Tessalon Perles (Benzonatate) 100 Mg Cap 100 Mg PO TID PRN Proventil Hfa 6.7 GM Inh (Albuterol Sulfate) 90 Mcg/Act Aer 2 Puff INH Q4-6H PRN Reported Multiple Vitamin 1 Tab 1 Tab PO DAILY Ginkgo Biloba (Ginkgo Biloba [place] Extract) 60 Mg Tablet Meclizine (Meclizine HCl) 25 Mg Tab 25 Mg PO DIRECTED PRN Motrin Ib (Ibuprofen) 200 Mg Tablet 800 Mg PO Xanax (Alprazolam) 0.5 Mg Tab 0.5 Mg PO Q6H PRN Levothyroxine (Levothyroxine Sodium) 50 Mcg Tab 50 Mcg PO DAILY Review of Systems Except as stated in HPI: all other systems reviewed are Neg General / Constitutional: No: Fever, Chills Eyes: No: Visual changes HENT: No: Headaches Cardiovascular: No: Chest Pain or Discomfort Respiratory: No: Shortness of Breath Gastrointestinal: No: Abdominal Pain Genitourinary: No: Dysuria Musculoskeletal: Positive: Arthralgias, Limited ROM, Pain Skin: No Rash Neurologic: No: Weakness Psychiatric: No: Depression Endocrine: No: Polydipsia Hematologic/Lymphatic: No: Easy Bruising Physical Exam Narrative GENERAL: Patient appears in no obvious distress. SKIN: Warm and dry. Normal color. Normal turgor. There is no erythema or ecchymosis over the left foot. HEAD: Atraumatic. Normocephalic. EYES: Pupils equal and round. No scleral icterus. No injection or drainage. ENT: No nasal bleeding or discharge. Mucous membranes pink and moist. Pharynx is clear. Airway is patent NECK: Trachea midline. Supple nontender. CARDIOVASCULAR: Regular rate and rhythm. RESPIRATORY: No accessory muscle use. Clear to auscultation. Breath sounds equal bilaterally. GASTROINTESTINAL: Abdomen soft, non-tender, nondistended. Hepatic and splenic margins not palpable. MUSCULOSKELETAL: Extremities without clubbing, cyanosis, or edema. No obvious deformities. Question of swelling over the dorsal lateral left foot. There are no open wounds or other deformities. Ankle is unremarkable on both sides. Negative Homans sign. No calf tenderness with palpation or hyperextension. Negative straight leg raise pain. Neurovascular exam is unremarkable. NEUROLOGICAL: Awake and alert. No obvious cranial nerve deficits. Motor grossly within normal limits. Five out of 5 muscle strength in the arms and legs. Normal speech. PSYCHIATRIC: Appropriate mood and affect; insight and judgment normal. Data Data Last Documented VS Vital Signs Date Time Temp Pulse Resp B/P (MAP) Pulse Ox O2 Delivery O2 Flow Rate FiO2 03/14/17 12:33 18 03/14/17 12:15 98.3 105 152/89 (110) 97 Orders Orders Foot, Complete ([id number]) (03/14/17 12:54) Ice/Cold Pack (03/14/17 12:54) [facility] Medical Decision Making Medical Screen Exam Complete: Yes Emergency Medical Condition: Yes Differential Diagnosis Gouty arthritis. Plantar fasciitis. Tendinitis. Narrative Course X-ray of the left foot shows no acute process per radiologist. Labs or ultrasound not felt warranted based on my history and physical. Patient will be treated empirically with prednisone 20 mg twice a day 7 days. Patient is also given Mapap 500 mg 2 tabs every 6 hours when necessary #80. Ice and elevate the area and follow-up if symptoms do not improve. Diagnosis Primary Impression: Tenosynovitis of left foot Patient Instructions: Arthralgia (ED), General Instructions, Gout (ED), Lower Extremity Tenosynovitis (DC) Additional Instructions: X-ray of the left foot shows no acute process per radiologist. Labs or ultrasound not felt warranted based on my history and physical. Patient will be treated empirically with prednisone 20 mg twice a day 7 days. Patient is also given Mapap 500 mg 2 tabs every 6 hours when necessary #80. Ice and elevate the area and follow-up if symptoms do not improve. Med/Other Pt SpecificInfo: Prescription(s) given Disposition: 01 DISCHARGE HOME Condition: Stable Tyler Guevara Mar 14, 2017 13:29
[2017-03-14] MEDS ORDERED: MAPA500T13 PO (13:30)
[2017-03-14] MEDS ORDERED: PRED20 PO (13:30)
[2017-03-14] MEDS ORDERED: TRAM50TA PO (13:51)
== END 2017-03-14 13:55 | disposition home or self-care (01) ==
LOC: NEPD 12:13
DX: M65.872 Other synovitis and tenosynovitis, left ankle and foot (principal); Z72.0 Tobacco use
CPT/HCPCS: 73630; 99284

== ENCOUNTER 2017-05-04 21:48 | Emergency (ER) | payer OTHER ==
[~2017-05-04] VITALS: Ht 162.6 cm; Wt 88.6 kg
[~2017-05-04 21:48] MED LIST changes: +ALPR.5 PO; +GINK60TA10; +IBUP-1129 PO; -LEVA500T PO; +MECL-62 PO; +MULTTAB67 PO; +PRED20 PO; +TRAM50TA PO
[2017-05-04 22:11] VITALS: BP 172/89; PULSE 99; RESP 18; TEMP 98.1; O2SAT 98
--- NOTE | 2017-05-09 10:18 | PD ---
Physical Exam Date Seen by Provider: May 04, 2017 Time Seen by Provider: 22:11 Narrative 51-year-old female presents to the emergency department stating that she feels generalized weakness and states she has "a ball under my tongue". Patient states her current pain is 5/10. [facility] Supervised Visit with [id number]: No Narrative Course 51-year-old female presents to the emergency department for evaluation of generalized weakness and feeling like there is "a ball under my tongue". Patient was initially seen in triage. She did leave AGAINST MEDICAL ADVICE before she could be moved to medical bed. Diagnosis Primary Impression: Left against medical advice Patient Instructions: General Instructions Departure Forms: Tests/Procedures Disposition: 07 AGAINST MEDICAL ADVICE Carol Edgar May 09, 2017 10:18
== END 2017-05-04 23:55 | disposition left against medical advice (07) ==
LOC: NED 21:48
DX: R53.1 Weakness (principal); Z53.21 Procedure and treatment not carried out due to patient leaving prior to being seen by health care provider
CPT/HCPCS: 99281

== ENCOUNTER 2017-08-03 10:29 | Emergency (ER) | payer OTHER, MEDICAID ==
[~2017-08-03] VITALS: Ht 162.6 cm; Wt 86.4 kg
[2017-08-03 10:35] VITALS: BP 159/100; PULSE 127; RESP 18; TEMP 98.9; O2SAT 98
--- NOTE | 2017-08-03 11:19 | PD ---
HPI Chief Complaint: Psychiatric Symptoms Time Seen by Provider: 10:57 Travel History International Travel<30 days: No Contact w/Intl Traveler<30days: No Traveled to known affect area: No History of Present Illness HPI Patient states that she had a prescription for Xanax written back in December 2016, and that she was only using those as needed. However over the last week or so she sloughs that 1 of her best friends to cancer, and she is ever since been grieving and wanted to get some more sleep so she took about 3 Xanax to help her sleep. Patient with a humanly denies that she is suicidal or homicidal. However her boyfriend called 911 and she was [place]ino[place] acted by police department. Patient is very distraught that she is here as a Hinojosa act and states that she is just grieving and does not need to be here. Patient also vehemently denies that she is a "druggie", if she was why which is still have old xanax from 2017. 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 I advised patient that she will be evaluated and medically screen and then have psychiatrist see her and they will decide whether to lift or not the Hinojosa act. No nondrug allergies Past medical history significant for hypothyroidism on levothyroxine Past surgical history significant for back surgery 3, some sort of brain surgery according to patient she could not really give any further details, partial hysterectomy PFSH Past Medical History Hx Anticoagulant Therapy: No Chemotherapy: No Cerebrovascular Accident: No Diabetes: No Diminished Hearing: No Respiratory: No Thyroid Disease: Yes ?: Not Menopausal: Yes Past Surgical History Hysterectomy: Yes (partail) Neurologic Surgery: Yes (back sx x3, brain sx) Other Surgery: Yes (hemorrhoid removal) Social History Alcohol Use: No Tobacco Use: Yes Substance Use: No Allergies-Medications (Allergen,Severity, Reaction): Coded Allergies: No Known Allergies (Verified Adverse Reaction, Unknown, 03/14/17) Reported Meds & Prescriptions Reported Meds & Active Scripts Active Proventil Hfa 6.7 GM Inh (Albuterol Sulfate) 90 Mcg/Act Aer 2 Puff INH Q4-6H PRN Reported Multiple Vitamin 1 Tab 1 Tab PO DAILY Ginkgo Biloba (Ginkgo Biloba [place] Extract) 60 Mg Tablet Meclizine (Meclizine HCl) 25 Mg Tab 25 Mg PO DIRECTED PRN Motrin Ib (Ibuprofen) 200 Mg Tablet 800 Mg PO Xanax (Alprazolam) 0.5 Mg Tab 0.5 Mg PO Q6H PRN Levothyroxine (Levothyroxine Sodium) 50 Mcg Tab 50 Mcg PO DAILY Review of Systems General / Constitutional: No: Fever Eyes: No: Visual changes HENT: No: Headaches Cardiovascular: No: Chest Pain or Discomfort Respiratory: No: Shortness of Breath Gastrointestinal: No: Abdominal Pain Genitourinary: No: Dysuria Musculoskeletal: No: Pain Skin: No Rash Neurologic: No: Weakness Psychiatric: Positive: Depression Endocrine: No: Polydipsia Hematologic/Lymphatic: No: Easy Bruising Physical Exam Narrative GENERAL: SKIN: Warm and dry. HEAD: Atraumatic. Normocephalic. EYES: Pupils equal and round. No scleral icterus. No injection or drainage. ENT: No nasal bleeding or discharge. Mucous membranes pink and moist. NECK: Trachea midline. No JVD. CARDIOVASCULAR: Regular rate and rhythm. RESPIRATORY: No accessory muscle use. Clear to auscultation. Breath sounds equal bilaterally. GASTROINTESTINAL: Abdomen soft, non-tender, nondistended. MUSCULOSKELETAL: Extremities without clubbing, cyanosis, or edema. No obvious deformities. NEUROLOGICAL: Awake and alert. No obvious cranial nerve deficits. Motor grossly within normal limits. Five out of 5 muscle strength in the arms and legs. Normal speech. PSYCHIATRIC: depressed mood and sad affect; insight and judgment normal. Data Data Last Documented VS Vital Signs Date Time Temp Pulse Resp B/P (MAP) Pulse Ox O2 Delivery O2 Flow Rate FiO2 08/03/17 10:35 98.9 127 18 159/100 (119) 98 Orders Orders Complete Blood Count With Diff (08/03/17 11:07) Comprehensive Metabolic Panel (08/03/17 11:07) Thyroid Stimulating Hormone (08/03/17 11:07) Urinalysis - C+S If Indicated (08/03/17 11:07) Electrocardiogram (08/03/17 11:07) Psych Screen (08/03/17 11:07) Drug Screen, Random Urine (08/03/17 11:07) Alcohol (Ethanol) (08/03/17 11:07) Salicylates (Aspirin) (08/03/17 11:07) Tylenol (Acetaminophen) (08/03/17 11:07) Diet Regular Basic (08/03/17 Lunch) Labs Laboratory Tests Test 08/03/17 10:50 08/03/17 11:15 White Blood Count 11.4 TH/MM3 Red Blood Count 4.98 MIL/MM3 Hemoglobin 14.9 GM/DL Hematocrit 43.9 % Mean Corpuscular Volume 88.1 FL Mean Corpuscular Hemoglobin 30.0 PG Mean Corpuscular Hemoglobin Concent 34.0 % Red Cell Distribution Width 13.2 % Platelet Count 294 TH/MM3 Mean Platelet Volume 7.5 FL Neutrophils (%) (Auto) 51.5 % Lymphocytes (%) (Auto) 38.0 % Monocytes (%) (Auto) 6.1 % Eosinophils (%) (Auto) 3.8 % Basophils (%) (Auto) 0.6 % Neutrophils # (Auto) 5.9 TH/MM3 Lymphocytes # (Auto) 4.3 TH/MM3 Monocytes # (Auto) 0.7 TH/MM3 Eosinophils # (Auto) 0.4 TH/MM3 Basophils # (Auto) 0.1 TH/MM3 CBC Comment DIFF FINAL Differential Comment Blood Urea Nitrogen 9 MG/DL Creatinine 0.68 MG/DL Random Glucose 88 MG/DL Total Protein 7.9 GM/DL Albumin 3.8 GM/DL Calcium Level 9.2 MG/DL Alkaline Phosphatase 67 U/L Aspartate Amino Transf (AST/SGOT) 17 U/L Alanine Aminotransferase (ALT/SGPT) 27 U/L Total Bilirubin 0.2 MG/DL Sodium Level 140 MEQ/L Potassium Level 4.4 MEQ/L Chloride Level 106 MEQ/L Carbon Dioxide Level 25.3 MEQ/L Anion Gap 9 MEQ/L Estimat Glomerular Filtration Rate 91 ML/MIN Thyroid Stimulating Hormone 3rd Gen 2.920 uIU/ML Salicylates Level 3.9 MG/DL Acetaminophen Level LESS THAN 2.0 MCG/ML Ethyl Alcohol Level LESS THAN 3 MG/DL Urine Color YELLOW Urine Turbidity HAZY Urine pH 5.5 Urine Specific [place] 1.026 Urine Protein TRACE mg/dL Urine Glucose (UA) NEG mg/dL Urine Ketones NEG mg/dL Urine Occult Blood NEG Urine Nitrite NEG Urine Bilirubin NEG Urine Urobilinogen LESS THAN 2.0 MG/DL Urine Leukocyte Esterase NEG Urine RBC LESS THAN 1 /hpf Urine WBC 1 /hpf Urine Squamous Epithelial Cells 4 /hpf Urine Bacteria OCC /hpf Urine Hyaline Casts 8 /lpf Urine Mucus MANY /lpf Microscopic Urinalysis Comment CULT NOT INDICATED Urine Opiates Screen NEG Urine Barbiturates Screen NEG Urine Amphetamines Screen NEG Urine Benzodiazepines Screen POS Urine Cocaine Screen NEG Urine Cannabinoids Screen POS MDM Medical Decision Making Medical Screen Exam Complete: Yes Emergency Medical Condition: Yes Medical Record Reviewed: Yes Interpretation(s) EKG shows normal sinus rhythm, 97 bpm, normal intervals, no ST elevation CT pattern noted Differential Diagnosis Grief reaction versus depression versus suicidal ideation versus hypothyroidism versus anemia versus dehydration versus tox screen related induced mood disorder Narrative Course Based on the interview history of present illness the patient's has symptoms most consistent with grief reaction secondary to loss of her friend to cancer. However will perform a medical clearance examination and allow the psychiatry team to evaluate patient CBC shows reactive leukocytosis without left shift, no anemia and normal platelet count Nontoxic salicylate level of 3.9, negative Tylenol negative alcohol Electrolyte are within normal limits, normal kidney liver and normal thyroid screening Tox screen positive for marijuana and benzos (the patient admitted to marijuana use, benzos are prescribed for) Urinalysis is negative for any UTI Patient is medically clear for psychiatric evaluation Diagnosis Primary Impression: Medical clearance for psychiatric admission Teodoro Gomez MD Aug 03, 2017 11:19
[2017-08-03 11:25] LABS: AUTOMATED NEUTROPHIL # 5.9 TH/MM3 (1.8-7.7); BASOPHIL # 0.1 TH/MM3 (0-0.2); BASOPHIL % 0.6 % (0.0-2.0); EOSINOPHIL # 0.4 TH/MM3 (0-0.4); EOSINOPHIL % 3.8 % (0.0-4.0); HEMATOCRIT 43.9 % (35.0-46.0); HEMOGLOBIN 14.9 GM/DL (11.6-15.3); LYMPHOCYTE # 4.3 TH/MM3 (1.0-4.8); MEAN CELL VOLUME 88.1 FL (80.0-100.0); MEAN PLATELET VOLUME 7.5 FL (7.0-11.0); MONO % 6.1 % (0.0-8.0); MONOCYTE # 0.7 TH/MM3 (0-0.9); NEUT % 51.5 % (16.0-70.0); PLATELET COUNT 294 TH/MM3 (150-450); RED BLOOD COUNT 4.98 MIL/MM3 (4.00-5.30); RED CELL DISTRIBUTION WIDTH 13.2 % (11.6-17.2); WHITE BLOOD COUNT 11.4 TH/MM3 (4.0-11.0)
[2017-08-03 11:42] LABS: ALT (GPT) 27 U/L (10-53)
[2017-08-03 11:52] LABS: ALKALINE PHOSPHATASE 67 U/L (45-117); TOTAL BILIRUBIN ADULT 0.2 MG/DL (0.2-1.0); TOTAL PROTEIN 7.9 GM/DL (6.4-8.2)
[2017-08-03 12:06] LABS: ALBUMIN 3.8 GM/DL (3.4-5.0); AST (GOT) 17 U/L (15-37); BICARBONATE 25.3 MEQ/L (21.0-32.0); BLOOD UREA NITROGEN 9 MG/DL (7-18); CALCIUM 9.2 MG/DL (8.5-10.1); CHLORIDE 106 MEQ/L (98-107); CREATININE 0.68 MG/DL (0.50-1.00); GLOMERULAR FILTRATION RATE 91 ML/MIN (>89); GLUCOSE,RANDOM 88 MG/DL (74-106); SODIUM (NA) 140 MEQ/L (136-145)
[2017-08-03 12:09] LABS: ACETAMINOPHEN LESS THAN 2.0 MCG/ML (10.0-30.0)
[2017-08-03 12:53] LABS: BACTERIA, URINE OCC /hpf; BILIRUBIN, URINE NEG (NEG); BLOOD, URINE NEG (NEG); GLUCOSE,URINE NEG (NEG); HYALINE CAST, URINE 8 /lpf (RARE); KETONE, URINE NEG (NEG); MUCUS URINE MANY /lpf (OCC); NITRITE,URINE NEG (NEG); PH, URINE 5.5 (5.0-8.5); SQUAMOUS EPITHELIAL CELL URINE 4 /hpf (0-5); URINE COLOR YELLOW (YELLW/STRAW); URINE LEUKOCYTE ESTERASE NEG (NEG)
--- NOTE | 2017-08-03 14:19 | EKG ---
Date Performed: 08/03/2017 Time Performed: 12:06:35 PTAGE: 51 years EKG: Sinus rhythm NORMAL ECG No significant change from prior electrocardiogram. PREVIOUS TRACING : 07/07/2016 17.03 DOCTOR: Unruly Neves Interpretating Date/Time 08/03/2017 14:17:12
[2017-08-03 17:05] VITALS: BP 130/76; PULSE 85; RESP 18; TEMP 99.1; O2SAT 96
[2017-08-03 17:15] VITALS: BP 150/100; PULSE 127; RESP 18; TEMP 98.9; O2SAT 98
[2017-08-03] MEDS ORDERED: ALBUTEROL SULFATE 90 MCG/ACT HFA 8 GM INHALER INH PRN (17:30)
[2017-08-03 23:50] VITALS: BP 125/68; PULSE 76; RESP 17; O2SAT 99
--- NOTE | 2017-08-04 11:21 | PD ---
History of Present Illness Chief Complaint: Psychiatric Symptoms Time Seen by Provider: 11:00 Travel History International Travel<30 Days: No Contact w/Intl Traveler<30days: No Known affected area: No Legal Status Legal Status: Hinojosa Act Hinojosa Act Signed By: Rogerio De La Rosa Hinojosa Act Comment: Deputy Fregoso #[id number] History of Present Illness: History of Present Illness HPI Patient is a 51-year-old, single, female with reported history of anxiety disorder, presents to the ED under a Hinojosa act initiated by law enforcement. The report alleges that the patient told the police she was extremely depressed due to recent deaths in her family and that she has to take Xanax to complete daily tasks. She alleges she attempted to leave and go for a walk while being under heavy influence of Xanax which could possibly cause harm to herself. The patient's boyfriend Bryon informed the police that he had located the patient lying on the floor unconscious and that he believes she took an unknown amount of pills. Patient on the other hand just that she only took # 3 of the 0.25 mg of Xanax because she was feeling very anxious and not as a suicidal gesture. States that she had a prescription for Xanax written back in December 2016, and that she was only using those as needed. EMR is reviewed. Number previous contact with [facility] psychiatry. Current toxicology positive for cannabinoids and benzos which are prescribed. Patient was monitor and secure environment and presented no suicidality and no other behavioral concerns. Patient is seen. Demetrio maloney present during visit. Patient is alert and oriented, engaging and cooperative. No evidence of any psychosis or tesfaye was noted. The patient denies any suicidal or homicidal ideation, intent or plan. She is very worried over her sister whom she reports she is her staff pharmacist and is requesting to be discharge. She is consistent in her accounts of the events and stating that she only took 3 Xanax to help her relax. She continues to deny any suicidal or homicidal ideation, intent or plan. The patient is future oriented and has plans on going back to [place] at September 30 to visit her family. The patient is also interested in receiving referrals for grief counseling. PFSH Past Medical History Hx Anticoagulant Therapy: No Chemotherapy: No Cerebrovascular Accident: No Diabetes: No Diminished Hearing: No Respiratory: No Thyroid Disease: Yes ?: Not Menopausal: Yes Past Surgical History Hysterectomy: Yes (partail) Neurologic Surgery: Yes (back sx x3, brain sx) Other Surgery: Yes (hemorrhoid removal) Psychiatric History Psychiatric History Hx Psychiatric Treatment: Has been receiving outpatient services.Most recently seen by [facility] at [facility]. No previous sucied attempmts. History of Inpatient Treatment: No Guns or firearms in home: No Social History Patient is single. Living with her sister. Has a boyfriend. She is unemployed on Social Security disability for a back injury. She retired after working for the [place] [employer]. Hx Alcohol Use: No Hx Tobacco Use: Yes Hx Substance Use: No Hx of Substance Use Treatment: No Family Psychiatric History Negative Allergies-Medications (Allergen,Severity, Reaction): Coded Allergies: No Known Allergies (Verified Adverse Reaction, Unknown, 03/14/17) Reported Meds & Prescriptions Reported Meds & Active Scripts Active Proventil Hfa 6.7 GM Inh (Albuterol Sulfate) 90 Mcg/Act Aer 2 Puff INH Q4-6H PRN Reported Multiple Vitamin 1 Tab 1 Tab PO DAILY Ginkgo Biloba (Ginkgo Biloba [place] Extract) 60 Mg Tablet Meclizine (Meclizine HCl) 25 Mg Tab 25 Mg PO DIRECTED PRN Motrin Ib (Ibuprofen) 200 Mg Tablet 800 Mg PO Xanax (Alprazolam) 0.5 Mg Tab 0.5 Mg PO Q6H PRN Levothyroxine (Levothyroxine Sodium) 50 Mcg Tab 50 Mcg PO DAILY Review of Systems Psychiatric: COMPLAINS OF: Anxiety Except as stated in HPI: all other systems reviewed are Neg Mental Status Examination Appearance: Appropriate Consciousness: Alert Orientation: x4 Motor Activity: Normal gait Speech: Unremarkable Language: Adequate Fund of Knowledge: Adequate Attention and Concentration: Adequate Memory: Unremarkable Mood: Appropriate, Anxious Affect: Appropriate Thought Process & Associations: Intact, Logical, Goal directed Thought Content: Appropriate Hallucination Type: None Delusion Type: None Suicidal Ideation: No Suicidal Plan: No Suicidal Intention: No Homicidal Ideation: No Homicidal Plan: No Homicidal Intention: No Insight: Adequate Judgment: Impulsive MDM Medical Decision Making Medical Record Reviewed: Yes Assessment/Plan History of Present Illness HPI Patient is a 51-year-old, single, female with reported history of anxiety disorder, presents to the ED under a Hinojosa act initiated by law enforcement. The report alleges that the patient told the police she was extremely depressed due to recent deaths in her family and that she has to take Xanax to complete daily tasks. She alleges she attempted to leave and go for a walk while being under heavy influence of Xanax which could possibly cause harm to herself. The patient's boyfriend Bryon informed the police that he had located the patient lying on the floor unconscious and that he believes she took an unknown amount of pills. Patient on the other hand just that she only took # 3 of the 0.25 mg of Xanax because she was feeling very anxious and not as a suicidal gesture. States that she had a prescription for Xanax written back in December 2016, and that she was only using those as needed. Patient was monitor and secure environment and presented no suicidality. The patient denies any suicidal or homicidal ideation. She is future and oriented with adequate protective factors. Patient also contracts for safety and agrees to come back to the hospital of any changes. She is given the information to contact grief share program. She will also follow up with outpatient psychiatrist. Patient does not meet BA criteria. It will be lifted. Orders Orders Diet Regular Basic (08/03/17 Lunch) Albuterol Hfa Inh (Proair Hfa Inh) (08/03/17 17:30) Diet Regular Basic (08/03/17 Dinner) Diet Regular Basic (08/04/17 Breakfast) Results Vital Signs Date Time Temp Pulse Resp B/P (MAP) Pulse Ox O2 Delivery O2 Flow Rate FiO2 08/03/17 23:50 76 17 125/68 (87) 99 Room Air 08/03/17 17:15 98.9 127 18 150/100 (117) 98 Room Air 08/03/17 17:05 99.1 85 18 130/76 (94) 96 Diagnosis Primary Impression: Medical clearance for psychiatric admission Additional Impression: Adjustment disorder Psychiatrically Cleared: Yes Disposition: 01 DISCHARGE HOME Condition: Stable Problem Qualifiers Additional Impression: Adjustment disorder Qualified Codes: F43.22 - Adjustment disorder with anxiety Drew,Hina Ruba Hanna PBX SUPERVISOR Aug 04, 2017 11:20
[2017-08-04 11:22] VITALS: BP 153/97; PULSE 79; RESP 18
--- NOTE | 2017-08-04 11:33 | PD ---
Physical Exam Date Seen by Provider: Aug 04, 2017 Time Seen by Provider: 11:31 Narrative For full history and physical examination please see previous providers note. Data Data Last Documented VS Vital Signs Date Time Temp Pulse Resp B/P (MAP) Pulse Ox O2 Delivery O2 Flow Rate FiO2 08/04/17 11:26 08/04/17 11:22 79 18 Room Air 08/03/17 23:50 99 08/03/17 17:15 98.9 Orders Orders Complete Blood Count With Diff (08/03/17 11:07) Comprehensive Metabolic Panel (08/03/17 11:07) Thyroid Stimulating Hormone (08/03/17 11:07) Urinalysis - C+S If Indicated (08/03/17 11:07) Electrocardiogram (08/03/17 11:07) Psych Screen (08/03/17 11:07) Drug Screen, Random Urine (08/03/17 11:07) Alcohol (Ethanol) (08/03/17 11:07) Salicylates (Aspirin) (08/03/17 11:07) Tylenol (Acetaminophen) (08/03/17 11:07) Diet Regular Basic (08/03/17 Lunch) Albuterol Hfa Inh (Proair Hfa Inh) (08/03/17 17:30) Diet Regular Basic (08/03/17 Dinner) Diet Regular Basic (08/04/17 Breakfast) Ed Discharge Order (08/04/17 11:30) Labs Laboratory Tests Test 08/03/17 10:50 08/03/17 11:15 White Blood Count 11.4 TH/MM3 Red Blood Count 4.98 MIL/MM3 Hemoglobin 14.9 GM/DL Hematocrit 43.9 % Mean Corpuscular Volume 88.1 FL Mean Corpuscular Hemoglobin 30.0 PG Mean Corpuscular Hemoglobin Concent 34.0 % Red Cell Distribution Width 13.2 % Platelet Count 294 TH/MM3 Mean Platelet Volume 7.5 FL Neutrophils (%) (Auto) 51.5 % Lymphocytes (%) (Auto) 38.0 % Monocytes (%) (Auto) 6.1 % Eosinophils (%) (Auto) 3.8 % Basophils (%) (Auto) 0.6 % Neutrophils # (Auto) 5.9 TH/MM3 Lymphocytes # (Auto) 4.3 TH/MM3 Monocytes # (Auto) 0.7 TH/MM3 Eosinophils # (Auto) 0.4 TH/MM3 Basophils # (Auto) 0.1 TH/MM3 CBC Comment DIFF FINAL Differential Comment Blood Urea Nitrogen 9 MG/DL Creatinine 0.68 MG/DL Random Glucose 88 MG/DL Total Protein 7.9 GM/DL Albumin 3.8 GM/DL Calcium Level 9.2 MG/DL Alkaline Phosphatase 67 U/L Aspartate Amino Transf (AST/SGOT) 17 U/L Alanine Aminotransferase (ALT/SGPT) 27 U/L Total Bilirubin 0.2 MG/DL Sodium Level 140 MEQ/L Potassium Level 4.4 MEQ/L Chloride Level 106 MEQ/L Carbon Dioxide Level 25.3 MEQ/L Anion Gap 9 MEQ/L Estimat Glomerular Filtration Rate 91 ML/MIN Thyroid Stimulating Hormone 3rd Gen 2.920 uIU/ML Salicylates Level 3.9 MG/DL Acetaminophen Level LESS THAN 2.0 MCG/ML Ethyl Alcohol Level LESS THAN 3 MG/DL Urine Color YELLOW Urine Turbidity HAZY Urine pH 5.5 Urine Specific [place] 1.026 Urine Protein TRACE mg/dL Urine Glucose (UA) NEG mg/dL Urine Ketones NEG mg/dL Urine Occult Blood NEG Urine Nitrite NEG Urine Bilirubin NEG Urine Urobilinogen LESS THAN 2.0 MG/DL Urine Leukocyte Esterase NEG Urine RBC LESS THAN 1 /hpf Urine WBC 1 /hpf Urine Squamous Epithelial Cells 4 /hpf Urine Bacteria OCC /hpf Urine Hyaline Casts 8 /lpf Urine Mucus MANY /lpf Microscopic Urinalysis Comment CULT NOT INDICATED Urine Opiates Screen NEG Urine Barbiturates Screen NEG Urine Amphetamines Screen NEG Urine Benzodiazepines Screen POS Urine Cocaine Screen NEG Urine Cannabinoids Screen POS MDM Medical Record Reviewed: Yes Supervised Visit with [id number]: No Narrative Course Patient was pertinent emergency department under Hinojosa act, she was seen and evaluated, medically cleared. She was then seen and evaluated by psychiatric nurse practitioner. The Hinojosa act was lifted. Please see her documentation. Patient will be discharged home at this time. Diagnosis Primary Impression: Adjustment disorder Qualified Codes: F43.22 - Adjustment disorder with anxiety Referrals: [facility] Patient Instructions: General Instructions Departure Forms: Tests/Procedures Additional Instruction: Follow-up with your primary doctor Follow-up with Hern[facility] Return to emergency department for any new or worsening symptoms Med/Other Pt SpecificInfo: No Change to Meds Disposition: DISCHARGE HOME Condition: Stable Cate Douglas 12, 2018 11:33
== END 2017-08-04 11:39 | disposition home or self-care (01) ==
LOC: NEDAMB 10:29 → NEPJ 08-04 11:39
DX: F43.22 Adjustment disorder with anxiety (principal); Z79.899 Other long term (current) drug therapy
CPT/HCPCS: 80053; 80307; 81001; 84443; 85025; 93005